=== PATIENT | female | born 1985 | race Caucasian/White ===

== ENCOUNTER 2017-10-05 23:33 | Observation (INO) | payer OTHER ==
[~2017-10-05] VITALS: Ht 157.5 cm; Wt 69.4 kg
[~2017-10-05 23:33] MED LIST: COLACE100 MG PO; ENDOCET 5-3251 EACH PO; IBUPROFEN800 MG PO; IRON325 MG PO; Motrin PO; PRENATAL VITAM1 EAC3 PO; Percocet 5/325,Endoc PO; Tylenol Extra Streng PO; ZITHROMAX Z-PA250 MG PO
[2017-10-06 00:06] LABS: BASOPHIL (%) 0.6 % (0-1); BASOPHIL COUNT 0.1 K/uL (0-0.1); EOSINOPHIL (%) 1.6 % (0-5); EOSINOPHIL COUNT 0.2 K/uL (0-0.3); HEMATOCRIT 39.7 % (36.0-46.0); HEMOGLOBIN 13.6 G/DL (11.9-15.5); IMMATURE GRANULOCYTE (%) 0.3 % (0.0-0.7); LYMPHOCYTE COUNT 4.3 K/uL (1.0-2.8); MCH 27.4 PG (29.0-34.0); MCHC 34.3 G/DL (30.0-36.0); MCV 79.9 FL (83-99); MONOCYTE COUNT 0.5 K/uL (0-0.8); NEUTROPHIL (%) 47.5 % (45-76); NEUTROPHIL COUNT 4.5 K/uL (1.8-6.4); PLATELET COUNT 249 K/uL (156-360); RBC DIS.WIDTH-CV 13.4 % (11.8-14.6); RBC DIS.WIDTH-SD 38.6 % (39-53); RED BLOOD COUNT 4.97 M/uL (3.80-5.20); WHITE BLOOD COUNT 9.6 K/uL (4.1-10.2)
[2017-10-06 00:17] LABS: ALBUMIN 4.2 g/dL (3.2-4.8); CHLORIDE 107 mEq/L (99-109); POTASSIUM 3.4 mEq/L (3.7-5.4); SODIUM 140 mEq/L (136-147)
[2017-10-06 00:19] LABS: GLUCOSE 110 mg/dL (70-99); TOTAL PROTEIN 7.6 g/dL (6.4-8.3)
[2017-10-06 00:21] LABS: TOTAL BILIRUBIN 0.4 mg/dL (0.0-1.0)
[2017-10-06 00:23] LABS: ALKALINE PHOSPHATASE 56 IU/L (3-129); CREATININE 0.9 mg/dL (0.6-1.3); GFR ESTIMATE (CALCULATED) > 59 mL/min/
[2017-10-06 00:24] LABS: UREA NITROGEN (BUN) 17 mg/dL (9-23)
[2017-10-06 00:25] LABS: AST (GOT) 17 IU/L (2-34)
[2017-10-06 00:26] LABS: ALT (GPT) 31 IU/L (3-49); LIPASE 51 U/L (1.0-51.0)
[2017-10-06] MEDS ORDERED: BACLOFEN10 MG PO (01:46)
[2017-10-06] MEDS ORDERED: DICLOFENAC SODI50 MG PO (01:46)
[2017-10-06] MEDS ORDERED: NABUMETONE750 MG PO (01:47)
[2017-10-06] MEDS ORDERED: CYCLOBENZAPRINE5 MG PO (01:47)
[2017-10-06] MEDS ORDERED: MICROGESTIN FE1 EACH PO (01:47)
[2017-10-06 02:12] LABS: APPEARANCE SL.HAZY ((CLEAR)); BILIRUBIN NEGATIVE; BLOOD MODERATE; COLOR YELLOW ((YELLOW)); GLUCOSE (STRIP) NEGATIVE; KETONES NEGATIVE; LEUKOCYTES NEGATIVE; NITRITE NEGATIVE; PROTEIN (STRIP) NEGATIVE
[2017-10-06 02:19] LABS: BACTERIA RARE /HPF; EPITHELIAL CELLS RARE /HPF; MUCUS TRACE /LPF; UCUL ADDED? NO; WHITE BLOOD CELLS 0-5 /HPF (0-5)
[2017-10-06 02:45] VITALS: BP 105/59
[2017-10-06 08:26] VITALS: BP 116/59
[2017-10-06 12:13] VITALS: BP 115/69
[2017-10-06] MEDS ORDERED: DILAUDID4 MG PO (13:59)
[2017-10-06] MEDS ORDERED: COLACE100 MG PO (13:59)
[2017-10-06] MEDS ORDERED: ONDANSETRON HCL8 MG PO (13:59)
[2017-10-06 16:33] VITALS: BP 107/58
[2017-10-06 20:15] VITALS: BP 127/79
[2017-10-07 00:22] VITALS: BP 114/68
[2017-10-07 08:27] VITALS: BP 118/75
== END 2017-10-07 15:43 | disposition home or self-care (01) ==
LOC: EME 23:33 → 3EAST 10-06 02:00 → EDOF 10-06 02:00 → ENRESERV 10-06 02:02 → 3EAST 10-06 02:36 → CANRESERV 10-06 14:25 → 3EAST 10-06 14:25 → ENRESERV 10-06 14:25 → 3EAST 10-07 15:43
PROVIDERS: Emergency Medicine
DX: K80.12 Calculus of gallbladder with acute and chronic cholecystitis without obstruction (principal); K66.0 Peritoneal adhesions (postprocedural) (postinfection); R11.0 Nausea
CPT/HCPCS: 74176; 76705; 80053; 81003; 83690; 85025; 88304; 99281; 99285; G0378; J0131; J0690; J1170; J1885; J2250; J2405; J2543; J3010; J3480; J7030; J7050; J7120; S0028